=== PATIENT | male | born 1955 | race Two or more races ===

== ENCOUNTER 2018-05-16 14:38 | Emergency (ER) | payer OTHER ==
[~2018-05-16] VITALS: Ht 172.7 cm; Wt 79.4 kg
[2018-05-16 14:52] VITALS: BP 156/87
[2018-05-16] MEDS ORDERED: predniSONE 20 MG TABLET ONE (15:49)
[2018-05-16] MEDS ORDERED: LORATADINE 10 MG TABLET ONE (15:49)
[2018-05-16] MEDS: predniSONE 20 MG TABLET PO ONE (15:53)
[2018-05-16] MEDS: LORATADINE 10 MG TABLET PO SCH (15:53)
== END 2018-05-16 16:31 | disposition home or self-care (01) ==
LOC: EDBD 14:44 → ER 14:44
DX: T78.1XXA Other adverse food reactions, not elsewhere classified, initial encounter (principal); X58.XXXA Exposure to other specified factors, initial encounter